=== PATIENT | female | born 1960 | race Caucasian/White ===

== ENCOUNTER 2024-02-18 14:15 | Outpatient (CLI) | payer OTHER, SELFPAY ==
[2024-02-18 14:29] LABS: Basophils # 0.2 K/mm3 (0-0.2); Basophils % 1.6 % (0.1-2.0); Eosinophils # 0.2 K/mm3 (0.0-0.4); Eosinophils % 1.8 % (0.1-12.0); Hematocrit 31.7 % (37.0-47.0); Hemoglobin 10.1 g/dL (12.2-16.2); Lymphocytes # 3.1 K/mm3 (0.7-4.5); Lymphocytes % 32.4 % (10-50); Mean Corpuscular HGB Conc 31.9 g/dL (31.8-35.4); Mean Corpuscular Hemoglobin 29.8 pg (27.0-31.2); Mean Corpuscular Volume 93.4 fl (81-99); Mean Platelet Volume 8.3 fl (7.4-10.4); Monocytes # 0.4 K/mm3 (0.1-1.0); Monocytes % 3.8 % (1.7-9.3); Neutrophils # 5.8 K/mm3 (1.8-7.8); Neutrophils % 60.4 % (37.0-80.0); Platelet Count 486 K/mm3 (142-424); Red Cell Distribution Width 14.9 % (11.5-17.5); White Blood Count 9.6 K/mm3 (4.8-10.8)
--- NOTE | 2024-02-18 14:31 | ECG_ITS ---
APPROVED REPORT Exam: Resting ECG Conclusion NSR. inferior q waves noted Pulm disease pattern Borderline LAD Electronically signed by : Tom Ovalle MD 02/19/2024 20:38:32
[2024-02-18 15:22] LABS: Chloride 102 mmol/L (98-107); Potassium 3.9 mmoL/L (3.5-5.1); Sodium 139 mmol/L (136-145)
[2024-02-18 15:24] LABS: Alanine Aminotransferase 26 U/L (12-78); Alkaline Phosphatase 85 U/L (38-126); Aspartate Amino Transferase 54 U/L (14-36); Bilirubin,Total 0.4 mg/dl (0.2-1.3); Blood Urea Nitrogen 22 mg/dl (7-17); Estimated Glomerular Filt Rate 33 ml/min (>60); GFR (African American) 40 ML/MIN (>60)
[2024-02-18 15:25] LABS: Albumin Level 4.4 g/dl (3.5-5.0); Albumin/Globulin Ratio 1.6 (1.1-1.8); Anion Gap 10.9 mEq/L (5-15); Calcium 9.6 mg/dl (8.4-10.2); Carbon Dioxide 30 mmol/L (22.0-30.0); Globulin 2.7 g/dL (1.3-3.2); Glucose 159 mg/dl (74-100); Total Protein,Serum 7.1 g/dl (6.3-8.2)
== END 2024-02-18 23:59 ==
PROVIDERS: PCP Family Medicine; Visit Provider Otolaryngology
DX: Z01.818 Encounter for other preprocedural examination (principal); K14.8 Other diseases of tongue
CPT/HCPCS: 36415; 80053; 85025; 93005

== ENCOUNTER → 2024-02-20 10:38 | Day surgery (SDC) | payer OTHER, SELFPAY ==
[2024-02-20] MEDS: LACTATED RINGERS 1000ML 1,000 ML 100 ML IV (11:09)
[2024-02-20 11:27] VITALS: BP 175/110; PULSE 75; RESP 18; TEMP 36.8; O2SAT 100; BMI 42.7
--- NOTE | 2024-02-20 12:16 | SUR.PREOP ---
Pt had an abnormal EKG and c/o SOB and CP. MD Middleton requested for anesthesia to discuss case with cardiology. MATT Parish spoke to Dimitri Haddad PA-C and decision was made to postpone surgery and have pt seen in office this week. Spoke to [facility] Cardiology front desk admin staff and pt is scheduled for a follow up on 02/21/24 @ 1400. Pt verbalized understanding, IV removed with catheter tip intact.
== END ==
LOC: OR 10:43
PROVIDERS: PCP Family Medicine; Visit Provider Otolaryngology
PROC: (CPT 41599; principal; 2024-02-20 12:00)
DX: Z53.8 Procedure and treatment not carried out for other reasons (principal); K14.8 Other diseases of tongue
CPT/HCPCS: 41599

== ENCOUNTER 2024-02-29 12:21 | Outpatient (CLI) | payer OTHER, SELFPAY ==
--- NOTE | 2024-02-29 | CA_ITS ---
APPROVED REPORT Exam: Pharmacologic Technologist: Andressa Ozuna, Ht: 5 ft 7 in Wt: 268 lbs BSA: 2.29 m2 HR: 75 bpm BP: 163/103 mmHg Rhythm: NSR, cannot R/O old anterior [place], low voltage QRS Medical History Medications: Amlodipine,,,,, Levothyroxine,,,,, Methocarbamol,,,,, Fexofenadine,,,,, Cardiac Risk Factors: , Smoking Stress Test Details Test: LEXISCAN HR Resting HR: 75 bpm Max Heart Rate (APMHR): 159 bpm Max HR Achieved: 95 bpm Target HR (85% APMHR): 135 bpm % of APMHR: 60 Recovery HR: 84 bpm BP Resting BP: 163/103 mmHg Max BP: 163/103 mmHg Recovery BP: 157.0/102.0 mmHg ECG Resting ECG: NSR, cannot R/O old anterior [place], low voltage QRS Clinical Exercise duration: 06:32 min Highest Stage Achieved: Stress ECG Conclusion During lexiscan pt experinced vague neck and chest discomfort. No arrhythmias noted. No significant ST changes. Conclusion: Unremarkable lexiscan stress. Myoview images reported separately. Test Summary REST . . . . . . . Sitting REST . . . . . . . Sitting REST . . . . . . . Sitting REST 06:12 . . 75 . 163/103 . . Stage 1 01:00 . . 85 . . . . Stage 2 01:00 . . 85 . . . . Stage 3 01:00 . . 82 . 148/ 94 . . Stage 4 01:00 . . 85 . 158/ 99 . . Stage 4 02:00 . . 82 . 157/102 . . Stage 4 03:00 . . 83 . 150/105 . . Stage 4 03:32 . . 81 . 150/105 . Stop exercise at 06:32 RECOVERY 00:13 . . 0 . . . . Electronically signed by : Marianna Hassan MD 03/03/2024 12:26:59
--- NOTE | 2024-02-29 12:23 | CA_ITS ---
APPROVED REPORT EXAM: Comprehensive 2D, Doppler, and color-flow Echocardiogram Dry Cleaning Supervisor: Ericka Moreno RDCS Ht: 5 ft 7 in Wt: 270lbs BSA: 2.30 BP: 168/78 mmHg Indications: AF EKG ABN M-Mode Dimensions RVDd 1.45 cm (0.9-2.6) LA Diam 3.91 cm (1.9-4.0) LVDd 5.22 cm (3.5-5.7) LVDs 3.37 cm (3.5-5.7) IVSd 0.96 cm (0.6-1.1) PWd 1.04 cm (0.6-1.1) EF (Teich) 64.50% FS 35.40% EDV (Teich) 130.70 mL ESV (Teich) 46.40 mL LV Diastology E Decel Time 123 (160-240 msec) E/A Ratio 1.0 Mitral Valve MV E Max Eric. 63.0 (40-130 cm/s) MV A Velocity 64.0 (40-130 cm/s) E/A Ratio 0.99 MV PHT 36.0 ms Left Ventricle The left ventricle is normal size. The left ventricular systolic function is normal. The left ventricular ejection fraction is within the normal range. There is normal left ventricular wall thickness. There is normal LV segmental wall motion. The left ventricular diastolic function is normal. LVEF is 60%. Right Ventricle The right ventricle is normal size. The right ventricular systolic function is normal. There is increased RV wall thickness. Atria The left atrium is mildly dilated. The right atrium is mildly dilated. There is no Doppler evidence of interatrial shunt. Aortic valve is mildly thickened. Aortic Valve There is no aortic valvular stenosis. No aortic regurgitation is present. Mitral Valve The mitral valve is normal in structure. No evidence of mitral valve stenosis. Trace mitral regurgitation. Tricuspid Valve The tricuspid valve leaflets are thin and pliable. Trace tricuspid regurgitation. There is insufficient TR jet to estimate RVSP. Pulmonic Valve The pulmonary valve is normal in structure. Trace pulmonic regurgitation. Great Vessels The aortic root is normal in size. The ascending aorta is not well-visualized. IVC is normal in size and collapses >50% with inspiration. Pericardium There is a small sized, anterior pericardial effusion present. The largest pocket measures 0.3 cm in diastole. No echo indications of tamponade. Other Information Study Quality: Fair Conclusion Normal biventricular systolic function. Mild biatrial dilation. No significant valvular stenosis or regurgitation. Small sized, anterior pericardial effusion present. The largest pocket measures 0.3 cm in diastole. No echo indications of tamponade. Electronically signed by : Marianna Hassan MD 03/04/2024 23:56:34
[2024-02-29] MEDS: SODIUM CHLORIDE 0.9% 10ML SYR (RAD ONLY) 10 ML IV ×2 (12:50→13:45)
--- NOTE | 2024-02-29 13:17 | NM_ITS ---
APPROVED REPORT Exam: Nuclear Stress Test Indication: DYSRHYTHMIA, OBESITY, HTN, HYPERLIPIDEMIA, TOB USE, SOB, FATIGUE, ABN EKG Patient Location: Outpatient Stress Tech: Andressa Ozuna NM Tech:Frida Jiménez SCARLET RT (R)(N)(M) Ht: 5 ft 7 in Wt: 270 lbs Bra Size: C HR: 75 bpm BP: 163/103 mmHg BSA: 2.30 m2 TID: 1.02 BMI: 42.2 History: DYSRHYTHMIA, HTN, HYPERLIPIDEMIA, TOB USE, SOB, FATIGUE, ABN EKG Procedure: Patient received 0.4 mg of intravenous Lexiscan, resting heart rate 75 bpm, resting blood pressure 163/103 mmHg, with Lexiscan maximum heart rate achieved was 95 bpm which is % of the maximum predicted heart rate and blood pressure was 163/103 mmHg. With Lexiscan, patient denied any complaint of chest pain. Cardiac Stress and Resting SPECT Images: Cardiac Stress and Resting SPECT images were obtained using technetium 99m Myoview 29.7 mCi stress and 10.52 mCi at rest. Resting and stress imaging in supine and prone positions demonstrate no evidence of fixed or reversible perfusion defects. Gated imaging demonstrates normal global and regional LV systolic function. LVEF is calculated at 59%. Conclusion: No evidence of fixed or reversible perfusion defects. Gated imaging demonstrates normal global and regional LV systolic function. LVEF is calculated at 59%. Electronically signed by : Marianna Hassan MD 03/03/2024 12:27:34
[2024-02-29] MEDS: REGADENOSON 0.4MG/5ML SYRINGE 0.400000000000000022 MG IV (13:45)
[2024-02-29] MEDS: ISOTOPE MYOVIEW (PER STUDY) 1 DOSE IV (14:39)
== END 2024-02-29 23:59 | disposition home or self-care (01) ==
LOC: RAD 12:23
PROVIDERS: PCP Family Medicine; Visit Provider Physician Assistant
DX: Z01.810 Encounter for preprocedural cardiovascular examination (principal); R06.00 Dyspnea, unspecified; R42 Dizziness and giddiness; R94.31 Abnormal electrocardiogram [ECG] [EKG]; I10 Essential (primary) hypertension; K14.8 Other diseases of tongue; R53.1 Weakness; R53.83 Other fatigue; R60.0 Localized edema; Z87.898 Personal history of other specified conditions
CPT/HCPCS: 78452; 93017; 93018; 93306; A9502; J2785